=== PATIENT | female | born 2000 | race Caucasian/White ===

== ENCOUNTER 2018-08-15 01:23 | Emergency (ER) | payer OTHER ==
[~2018-08-15] VITALS: Ht 172.7 cm; Wt 73.9 kg
[2018-08-15 01:52] VITALS: Ht 172.7 cm; Wt 73.9 kg
[2018-08-15 04:17] VITALS: BP 103/60
== END 2018-08-15 04:17 | disposition home or self-care (01) ==
LOC: ED 01:23
DX: N30.91 Cystitis, unspecified with hematuria (principal)
CPT/HCPCS: Q0162

== ENCOUNTER 2019-12-06 18:45 | Emergency (ER) | payer OTHER, SELFPAY ==
[~2019-12-06] VITALS: Ht 175.3 cm; Wt 72.6 kg
[2019-12-06 18:49] VITALS: Ht 175.3 cm; Wt 72.6 kg
[2019-12-06 20:05] LABS: BASOPHIL % 0.3 % (0-2); PLATELET COUNT 344 x10^3mcL (130-400); RED CELL DISTRIBUTION WIDTH 12.9 % (11.5-14.5)
[2019-12-06 20:07] LABS: CARBON DIOXIDE 26.4 mmol/L (21-32); CHLORIDE SERUM 100 mmol/L (98-107); CREATININE SERUM 0.9 mg/dL (0.6-1.0); GFR1 > 60 mL/min; GLUCOSE SERUM 95 mg/dL (74-106); POTASSIUM SERUM 3.6 mmol/L (3.5-5.1); SODIUM SERUM 137 mmol/L (136-145)
[2019-12-06 20:11] LABS: ALBUMIN 3.8 g/dL (3.4-5.0); ALKALINE PHOSPHATASE 76 U/L (46-116); ALT/SGPT 25 U/L (14-59); AST/SGOT 22 U/L (15-37); BILIRUBIN TOTAL 0.2 mg/dL (0.20-1.00); LIPASE 156 IU/L (73-393)
[2019-12-06 20:12] LABS: TOTAL PROTEIN, SERUM 8.5 g/dL (6.4-8.2)
[2019-12-06 22:42] VITALS: BP 102/63
== END 2019-12-06 22:42 | disposition home or self-care (01) ==
LOC: ED 18:45
PROVIDERS: Student in an Organized Health Care Education/Training Program
DX: R10.31 Right lower quadrant pain (principal); R50.9 Fever, unspecified; R11.0 Nausea; R19.7 Diarrhea, unspecified; N93.9 Abnormal uterine and vaginal bleeding, unspecified; R63.0 Anorexia; Z90.49 Acquired absence of other specified parts of digestive tract; Z87.19 Personal history of other diseases of the digestive system
CPT/HCPCS: J1885; J7030; Q9967